=== PATIENT | male | born 1975 | race Two or more races ===

== ENCOUNTER 2023-06-04 10:57 | Emergency (ER) | payer OTHER ==
[~2023-06-04] VITALS: Ht 167.6 cm; Wt 111.6 kg
[2023-06-04] MEDS ORDERED: ENALAPRIL MALEAT5 MG PO (11:32)
== END 2023-06-04 14:31 | disposition home or self-care (01) ==
LOC: ER 10:57
DX: S93.491A Sprain of other ligament of right ankle, initial encounter (principal); X37.1XXA Tornado, initial encounter; Y93.89 Activity, other specified; Y92.89 Other specified places as the place of occurrence of the external cause; Z91.013 Allergy to seafood; Z88.6 Allergy status to analgesic agent